=== PATIENT | male | born 1990 | race Caucasian/White ===

== ENCOUNTER 2016-06-11 08:03 | Emergency (ER) | payer BC, OTHER ==
[~2016-06-11] VITALS: Ht 175.3 cm; Wt 119.2 kg
[~2016-06-11 08:03] MED LIST: ALBUAER2 INH; ATV1 PO; PARO1TAB27 PO; PRED20TA PO; PXL20 PO
[2016-06-11 08:06] VITALS: BP 153/91; PULSE 84; TEMP 36.5; O2SAT 96; Ht 175.3 cm; Wt 119.2 kg
[2016-06-11] MEDS ORDERED: PRED50TA PO (08:25)
[2016-06-11] MEDS ORDERED: CYCL10TA6 PO (08:25)
--- NOTE | 2016-06-11 15:15 | EMERGENCY ROOM VISIT NOTE ---
ED Visit Note First contact with patient: 08:11 CHIEF COMPLAINT: Shoulder pain HISTORY OF PRESENT ILLNESS: This 25 year old male patient presents to the emergency department complaining of pain in the right shoulder to the past 2-3 days. The patient states that he was bailing hay when he developed his pain. He went to [facility] last night where x-rays were negative. The patient was started on tramadol. He has taken one dose of the medication with only minimal movement of symptoms. He states there is intermittent numbness into his third, fourth, and fifth digits. There is some limitation of motion of the arm because of the pain. The pain is moderate, constant and increases with motion of the hand and arm. The patient states the pain is dull and 7/10. No neck and no back pain. No chest pain or shortness of breath. No abdominal pain or nausea/vomiting. No cough. REVIEW OF SYSTEMS: A 6 system review of systems was performed with positives and pertinent negatives in the HPI. ALLERGIES: No known allergies MEDICATIONS: No chronic medications PMH: Otherwise healthy SOCIAL HISTORY: Lives in [facility] PHYSICAL EXAM: Vital Signs: Reviewed nurse's notes, vital signs stable. GENERAL : White male, in no acute distress, but appears to be in pain, well-developed, well-nourished. MUSCULOSKELETAL: There is no deformity in the contour of the right shoulder and there are no mikaela deformities noted. There is no sulcus sign. There is tenderness over the distal clavicld. The patient's range of motion is limited to raising the hand above the head. Supraspinatus strength 3/ 5. There is no other clavicle tenderness. No tenderness of the humerus, elbow , wrist, or hand. 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 Radial pulse 2+. NECK: No tenderness to palpation over the cervical spine. HEART: Regular rate and rhythm without murmurs gallops or rubs. LUNGS: Clear to auscultation bilaterally without wheezes, rales or rhonchi. No accessory muscle use. No retractions. NEURO: The patient is alert and oriented to person, place, and time. Normal sensation to light and sharp touch. Capillary refill less than 2 seconds. EMERGENCY DEPARTMENT COURSE: Physical exam and history were performed. Nursing notes and EMR were reviewed. The patient evidently has shoulder pain for the past several days that began while performing physical activity. On examination the patient does not appear toxic and does have reproducible tenderness. I discussed options of care with the patient as evidently he had x- rays performed less than 24 hours ago at another facility. The patient will be started on prednisone and Flexeril. He has an arm sling that he was asked to continue using. He may continue his tramadol. His symptoms appear musculoskeletal in nature. The patient was given information to follow with orthopedics, but again he may wish to look into this back: [place] where he lives. The patient was otherwise invited back to the ER with any new, worsening , or concerning symptoms. Current/Historical Medications Scheduled Cyclobenzaprine Hcl (Flexeril), 10 MG PO TID Paroxetine (Paxil), 30 MG PO DAILY Prednisone (Prednisone), 50 MG PO DAILY Allergies Coded Allergies: No Known Allergies (Unverified , NONE, 06/11/16) Vital Signs Date Time Temp Pulse Resp B/P Pulse Ox O2 Delivery O2 Flow Rate FiO2 06/11/16 08:06 36.5 84 18 153/91 96 Room Air Departure Information Impression Primary Impression: Right shoulder pain Dispostion Home / Self-Care Condition GOOD Prescriptions Cyclobenzaprine Hcl (FLEXERIL) 10 Mg Tab 10 MG PO TID for 7 Days, #21 TAB Prov: Ajit Queen PA-C 06/11/16 Prednisone (Prednisone) 50 Mg Tab 50 MG PO DAILY for 5 Days, #5 TAB Prov: Ajit Queen PA-C 06/11/16 Referrals Avni Duncan D.O. (PCP) Forms HOME CARE DOCUMENTATION FORM, IMPORTANT VISIT INFORMATION Patient Instructions My [facility] Additional Instructions You were seen and evaluated today on an emergency basis only. This is not a substitute for, or an effort to provide, complete comprehensive medical care. It is not possible to recognize and treat all injuries or illnesses in a single emergency department visit. For this reason it is recommended that you followup with your primary care physician on Thursday as scheduled for ongoing care and evaluation. For baseline pain relief you may alternate ibuprofen and acetaminophen every 4 hours for pain control. Take 600 mg ibuprofen (Advil) and then 4 hours later take 1000 mg acetaminophen (Tylenol). Do not take more than 3000 mg acetaminophen in a single day. Continue tramadol as previously prescribed. Take prednisone daily for the next 5 days. Take this medication in the morning with food. Flexeril 1 tablet up to 3 times a day as needed for muscle spasms. No driving, working, or alcohol use with Flexeril. You are welcome to return to the emergency department anytime with new, worsening, or concerning symptoms.
== END 2016-06-11 08:31 | disposition home or self-care (01) ==
LOC: C.EDB 08:05
DX: M25.511 Pain in right shoulder (principal); Z79.899 Other long term (current) drug therapy

== ENCOUNTER 2016-06-24 08:55 | Emergency (ER) | payer OTHER ==
[~2016-06-24] VITALS: Ht 177.8 cm; Wt 120.5 kg
[~2016-06-24 08:55] MED LIST changes: -ALBUAER2 INH; -ATV1 PO; -PRED20TA PO; -PXL20 PO
[2016-06-24 09:05] VITALS: TEMP 36.5; Ht 177.8 cm; Wt 120.5 kg
[2016-06-24] MEDS ORDERED: OPTIRAY 320 IV PRN (10:00)
[2016-06-24 10:19] LABS: BASO % 0.2 %; BASO ABS # 0.01 K/uL (0-0.2); COMPLETE YES; EOS % 0.9 %; HEMATOCRIT 40.4 % (42-52); IG% 0.2 %; LYMPH % 22.7 %; MEAN CELL VOLUME 85.8 fL (80-100); MEAN CORPUSCULAR HEMOGLOBIN 29.7 pg (25-34); MEAN CORPUSCULAR HGB CONC 34.7 g/dl (32-36); MEAN PLATELET VOLUME 9.3 fL (7.4-10.4); PLATELET COUNT 354 K/uL (130-400); RED BLOOD COUNT 4.71 M/uL (4.7-6.1); WHITE BLOOD COUNT 6.61 K/uL (4.8-10.8)
--- NOTE | 2016-06-24 10:33 | DIAGNOSTIC IMAGING REPORT ---
LUMBAR SPINE 5 VIEWS CLINICAL HISTORY: Fall. Low back pain. FINDINGS: 5 views of the lumbar spine are obtained. No prior studies are available for comparison at the time of dictation. The skeletal structures are well mineralized. There is no radiographic evidence of fracture or malalignment. Vertebral body height and alignment are maintained. The transverse and spinous processes are intact. There is no evidence of spondylolysis. The intervertebral disc spaces are well-maintained. The visualized bony pelvis appears intact. There is a nonobstructed abdominal bowel gas pattern. IMPRESSION: Unremarkable radiographic evaluation of the lumbosacral spine. Electronically signed by: Sonido Fregoso M.D. 06/24/2016 10:32 AM Dictated Date/Time: 06/24/2016 10:31 AM
--- NOTE | 2016-06-24 10:34 | DIAGNOSTIC IMAGING REPORT ---
RIGHT FOOT MIN 3 VIEWS ROUTINE CLINICAL HISTORY: Right foot pain status post trauma COMPARISON: None DISCUSSION: There are old healed metatarsal fractures. There is deformity of the second metatarsal head, consistent with old posttraumatic change or prior avascular necrosis. Secondary arthritic changes are present most pronounced the level of the metatarsal phalangeal joints and tarsal metatarsal joints. No acute fractures are visualized. IMPRESSION: Old posttraumatic and degenerative change. No acute fractures are visualized. Electronically signed by: Sergei Harris M.D. 06/24/2016 10:33 AM Dictated Date/Time: 06/24/2016 10:31 AM
--- NOTE | 2016-06-24 10:34 | DIAGNOSTIC IMAGING REPORT ---
RIGHT ANKLE 3 VIEWS CLINICAL HISTORY: Fall with right ankle pain. FINDINGS: 3 views of the right ankle are obtained. No prior studies are available for comparison at the time of dictation. The skeletal structures are well mineralized. There is no radiographic evidence of fracture. The ankle mortise is intact. There is no joint effusion. Mild soft tissue swelling is present around the ankle. Irregularity is partially imaged involving the tarsal bones. IMPRESSION: Mild soft tissue swelling with no radiographic evidence of right ankle fracture. Electronically signed by: Sonido Fregoso M.D. 06/24/2016 10:33 AM Dictated Date/Time: 06/24/2016 10:32 AM
[2016-06-24 10:36] LABS: BUN/CREATININE RATIO 12.1 (10-20); CALCIUM 8.6 mg/dl (8.5-10.1); CREATININE 0.81 mg/dl (0.60-1.40); POTASSIUM 3.7 mmol/L (3.5-5.1)
--- NOTE | 2016-06-24 11:31 | DIAGNOSTIC IMAGING REPORT ---
ABDOMEN AND PELVIS CT WITH IV CONTRAST CT DOSE: 1022.88 mGy.cm HISTORY: Trauma eval for solid organ injury TECHNIQUE: Multiaxial CT images of the abdomen and pelvis were performed following the use of intravenous contrast. COMPARISON STUDY: None. FINDINGS: The lung bases are clear. The liver, spleen, gallbladder, pancreas, kidneys, and adrenal glands are within normal limits. No bowel wall thickening or obstruction. The pelvic organs are unremarkable. No suspicious lytic or blastic osseous lesions. Subtle contusion subcutaneous fat overlying the anterior lower abdominal wall. IMPRESSION: No significant abnormality identified within the abdomen or pelvis. Slight subcutaneous fat contusion anterior aspect lower abdominal wall. Electronically signed by: Sudhir Centeno M.D. 06/24/2016 11:30 AM Dictated Date/Time: 06/24/2016 11:26 AM
[2016-06-24 12:05] VITALS: BP 131/72; PULSE 65; O2SAT 98
--- NOTE | 2016-06-24 16:21 | EMERGENCY ROOM VISIT NOTE ---
History Report prepared by Charbel: Nancy Avila Under the Supervision of: Dr. Jorge Alberto Gallardo M.D. First contact with patient: 09:40 Chief Complaint: FALL Stated Complaint: R BACK FOOT, SHOULDER PAIN History of Present Illness The patient is a 25 year old male who presents to the Emergency Room with complaints of persistent low back pain that began last evening. He currently rates his discomfort as a 10/10 in severity. The patient states that last evening as he was traveling from [place] to [place] he came across tress that were down in the middle of the road. He states that he got out of his car to try and help move the trees, but states that when he stepped on a wet branch, he slipped and fell, injuring his lower back. The patient states that the tree feel on top of him, and notes that he had some abdominal pain last evening that has resolved. He additionally notes that he twisted his right ankle and associates right ankle pain. The patient states that ambulating worsens his pain in his back and right ankle. He notes shooting pain from his back into his right leg. The patient denies any head injury or chest pain. He notes a history of a right foot reconstruction. Source of History: patient Onset: last evening Position: back (lower) Symptom Intensity: 10/10 Quality: other (shooting) Timing: other (persistent) Modifying Factors (Worsening): movement (ambulation) Associated Symptoms: No chest pain Note: Associated Symptoms: right ankle pain, pain radiating into his right leg Review of Systems See HPI for pertinent positives & negatives. A total of 10 systems reviewed and were otherwise negative. Past Medical & Surgical Medical Problems: (1) Asthma Surgical Problems: (1) Status post right foot surgery Family History Cancer Diabetes mellitus Hypertension Kidney disease Kidney stones Social History Smoking Status: Never Smoker Smokeless Tobacco Use: No Alcohol Use: occasionally Occupation Status: employed Current/Historical Medications No Active Prescriptions or Reported Meds Allergies Coded Allergies: No Known Allergies (Unverified , NONE, 06/24/16) Physical Exam Vital Signs Date Time Temp Pulse Resp B/P Pulse Ox O2 Delivery O2 Flow Rate FiO2 06/24/16 12:05 65 16 131/72 98 06/24/16 12:03 65 16 131/72 98 Room Air 06/24/16 11:37 67 15 141/66 99 Room Air 06/24/16 10:03 76 16 138/71 97 Room Air 06/24/16 09:05 36.5 74 16 139/92 96 Room Air Physical Exam Constitutional: Vital signs reviewed. Eyes: Pupils are equal round reactive to light. Conjunctiva are noninjected. ENT: Pharynx is clear without erythema or exudate. Mucous membranes are moist. Neck supple without meningeal signs. No midline tenderness to cervical spine. Respiratory: Clear to auscultation bilaterally. Breath sounds are equal bilaterally. Cardiovascular: Regular rate and rhythm. No rubs or gallops. GI: Right upper quadrant tenderness without guarding, no signs of trauma to the abdomen Soft, nondistended. Bowel sounds are present. Musculoskeletal: No significant rib tenderness no midline tenderness to thoracic spine, mild midline tenderness to lumbar spine without step off or deformity. No tenderness to right knee or tib/fib, mild right ankle tenderness diffusely, tenderness over the right mid foot without deformity. Integumentary: No cyanosis. Neurological: The patient is awake and alert. No focal deficits. Psychiatric: Normal affect. Medical Decision & Procedures ER Provider Diagnostic Interpretation: Radiology results as stated below per my review and the radiologist's interpretation: ABDOMEN AND PELVIS CT WITH IV CONTRAST CT DOSE: 1022.88 mGy.cm HISTORY: Trauma eval for solid organ injury TECHNIQUE: Multiaxial CT images of the abdomen and pelvis were performed following the use of intravenous contrast. COMPARISON STUDY: None. FINDINGS: The lung bases are clear. The liver, spleen, gallbladder, pancreas, kidneys, and adrenal glands are within normal limits. No bowel wall thickening or obstruction. The pelvic organs are unremarkable. No suspicious lytic or blastic osseous lesions. Subtle contusion subcutaneous fat overlying the anterior lower abdominal wall. IMPRESSION: No significant abnormality identified within the abdomen or pelvis. Slight subcutaneous fat contusion anterior aspect lower abdominal wall. Electronically signed by: Sudhir Centeno M.D. 06/24/2016 11:30 AM Dictated Date/Time: 06/24/2016 11:26 AM RIGHT ANKLE 3 VIEWS CLINICAL HISTORY: Fall with right ankle pain. FINDINGS: 3 views of the right ankle are obtained. No prior studies are available for comparison at the time of dictation. The skeletal structures are well mineralized. There is no radiographic evidence of fracture. The ankle mortise is intact. There is no joint effusion. Mild soft tissue swelling is present around the ankle. Irregularity is partially imaged involving the tarsal bones. IMPRESSION: Mild soft tissue swelling with no radiographic evidence of right ankle fracture. Electronically signed by: Sonido Fregoso M.D. 06/24/2016 10:33 AM Dictated Date/Time: 06/24/2016 10:32 AM RIGHT FOOT MIN 3 VIEWS ROUTINE CLINICAL HISTORY: Right foot pain status post trauma COMPARISON: None DISCUSSION: There are old healed metatarsal fractures. There is deformity of the second metatarsal head, consistent with old posttraumatic change or prior avascular necrosis. Secondary arthritic changes are present most pronounced the level of the metatarsal phalangeal joints and tarsal metatarsal joints. No acute fractures are visualized. IMPRESSION: Old posttraumatic and degenerative change. No acute fractures are visualized. Electronically signed by: Sergei Harris M.D. 06/24/2016 10:33 AM Dictated Date/Time: 06/24/2016 10:31 AM LUMBAR SPINE 5 VIEWS CLINICAL HISTORY: Fall. Low back pain. FINDINGS: 5 views of the lumbar spine are obtained. No prior studies are available for comparison at the time of dictation. The skeletal structures are well mineralized. There is no radiographic evidence of fracture or malalignment. Vertebral body height and alignment are maintained. The transverse and spinous processes are intact. There is no evidence of spondylolysis. The intervertebral disc spaces are well-maintained. The visualized bony pelvis appears intact. There is a nonobstructed abdominal bowel gas pattern. IMPRESSION: Unremarkable radiographic evaluation of the lumbosacral spine. Electronically signed by: Sonido Fregoso M.D. 06/24/2016 10:32 AM Dictated Date/Time: 06/24/2016 10:31 AM The status of this report is Signed. Draft = Not yet reviewed or approved by Radiologist. Signed = Reviewed and approved by Radiologist. Laboratory Results 06/24/16 10:00 Red Blood Count 4.71, Mean Corpuscular Volume 85.8, Mean Corpuscular Hemoglobin 29.7, Mean Corpuscular Hemoglobin Concent 34.7, Mean Platelet Volume 9.3, Neutrophils (%) (Auto) 66.0, Lymphocytes (%) (Auto) 22.7, Monocytes (%) (Auto) 10.0, Eosinophils (%) (Auto) 0.9, Basophils (%) (Auto) 0.2, Neutrophils # (Auto ) 4.37, Lymphocytes # (Auto) 1.50, Monocytes # (Auto) 0.66, Eosinophils # (Auto ) 0.06, Basophils # (Auto) 0.01 06/24/16 10:00 Test 06/24/16 10:00 White Blood Count 6.61 K/uL (4.8-10.8) Red Blood Count 4.71 M/uL (4.7-6.1) Hemoglobin 14.0 g/dL (14.0-18.0) Hematocrit 40.4 % (42-52) Mean Corpuscular Volume 85.8 fL (80-100) Mean Corpuscular Hemoglobin 29.7 pg (25-34) Mean Corpuscular Hemoglobin Concent 34.7 g/dl (32-36) Platelet Count 354 K/uL (130-400) Mean Platelet Volume 9.3 fL (7.4-10.4) Neutrophils (%) (Auto) 66.0 % Lymphocytes (%) (Auto) 22.7 % Monocytes (%) (Auto) 10.0 % Eosinophils (%) (Auto) 0.9 % Basophils (%) (Auto) 0.2 % Neutrophils # (Auto) 4.37 K/uL (1.4-6.5) Lymphocytes # (Auto) 1.50 K/uL (1.2-3.4) Monocytes # (Auto) 0.66 K/uL (0.11-0.59) Eosinophils # (Auto) 0.06 K/uL (0-0.5) Basophils # (Auto) 0.01 K/uL (0-0.2) RDW Standard Deviation 42.9 fL (36.4-46.3) RDW Coefficient of Variation 13.8 % (11.5-14.5) Immature Granulocyte % (Auto) 0.2 % Immature Granulocyte # (Auto) 0.01 K/uL (0.00-0.02) Anion Gap 6.0 mmol/L (3-11) Est Creatinine Clear Calc Drug Dose 184.6 ml/min Estimated GFR () 145.2 Estimated GFR (Non- 125.3 BUN/Creatinine Ratio 12.1 (10-20) Calcium Level 8.6 mg/dl (8.5-10.1) Total Bilirubin 2.1 mg/dl (0.2-1) Direct Bilirubin 0.3 mg/dl (0-0.2) Aspartate Amino Transf (AST/SGOT) 13 U/L (15-37) Alanine Aminotransferase (ALT/SGPT) 57 U/L (12-78) Alkaline Phosphatase 54 U/L (45-117) Total Protein 7.0 gm/dl (6.4-8.2) Albumin 4.3 gm/dl (3.4-5.0) Lipase 116 U/L (73-393) Laboratory results as reviewed by me. ED Course 0944: The patient was evaluated in room A3. A complete history and physical exam was performed. 1147: I reevaluated the patient and he is feeling well. I discussed all the test results with him and I discussed the treatment plan with him. He verbalized complete understanding and agreement. He is going to follow up with his orthopedic and PCP. He is ready to go home. Medical Decision This is a 25-year-old male who presents with injuries to his abdomen, back and right ankle and foot. Differential diagnosis includes solid organ injury, contusion, strain, lumbar disc disease, ankle fracture or dislocation, foot fracture. I did perform a limited focused review of portions of the patient's old chart on the electronic medical record. The patient was Seen here June 11 for right shoulder pain and he was discharged with Flexeril and prednisone and advised to follow up with orthopedics. I did evaluate the patient as noted above. The patient has abdominal tenderness and stated that they tree fell on his abdomen as he was trying to move it. He also hurt his back and foot and ankle in the process. He does have some tenderness in the upper abdomen. IV access was established. The patient drove here and so cannot receive any strong pain medications. I did order and personally review the patient's x-rays as described above. There is no evidence of acute fracture or dislocation. I did order and review the patient's blood work as noted in the electronic medical record. He is not anemic. I did order a CT of the abdomen and pelvis. I did review the images myself as well as the radiology report as described above. There is no evidence of solid organ injury. He does appear to have an abdominal wall contusion. I did discuss the test results with the patient. He was given a splint for his right ankle and crutches. He was advised follow up with his orthopedic doctor as well as his regular doctor. He was given return instructions as outlined below and discharged in good condition. [place] Drug Monitoring Program Search Results: patient reviewed within database, no issues identified Impression Primary Impression: Abdominal wall contusion Additional Impressions: Low back pain Injury of right ankle and foot Scribe Attestation The scribe's documentation has been prepared under my direct and personally reviewed by me in its entirety. I confirm that the note above accurately reflects all work, treatment, procedures, and medical decision making performed by me. Departure Information Dispostion Home / Self-Care Prescriptions No Active Prescriptions or Reported Meds Referrals Avni Duncan D.O. (PCP) Forms HOME CARE DOCUMENTATION FORM, IMPORTANT VISIT INFORMATION Patient Instructions My [facility] Additional Instructions You have been examined and treated today on an emergency basis only. This is not a substitute for, or an effort to provide, complete comprehensive medical care. It is impossible to recognize and treat all injuries or illnesses in a single emergency department visit. It is therefore important that you follow up closely with your physician and orthopedic physician. Call as soon as possible for an appointment. Return for worsening symptoms or if you develop fever, vomiting, blood in your stool or urine, difficulty breathing, chest pain or any other concerning symptoms. Problem Qualifiers Additional Impressions: Low back pain Chronicity: acute Back pain laterality: bilateral Sciatica presence: with sciatica Sciatica laterality: bilateral sciatica Qualified Codes: M54.42 - Lumbago with sciatica, left side; M54.41 - Lumbago with sciatica, right side Injury of right ankle and foot Encounter type: initial encounter Qualified Codes: S99.911A - Unspecified injury of right ankle, initial encounter; S99.921A - Unspecified injury of right foot, initial encounter
== END 2016-06-24 12:05 | disposition home or self-care (01) ==
LOC: C.EDB 08:57 → C.EDA 12:05
DX: S30.1XXA Contusion of abdominal wall, initial encounter (principal); M54.41 Lumbago with sciatica, right side; M54.42 Lumbago with sciatica, left side; S99.911A Unspecified injury of right ankle, initial encounter; J45.909 Unspecified asthma, uncomplicated; Z82.49 Family history of ischemic heart disease and other diseases of the circulatory system; Z83.3 Family history of diabetes mellitus; Z84.1 Family history of disorders of kidney and ureter; W01.0XXA Fall on same level from slipping, tripping and stumbling without subsequent striking against object, initial encounter; X50.0XXA Overexertion from strenuous movement or load, initial encounter; Y93.89 Activity, other specified

== ENCOUNTER 2016-09-09 07:16 | Emergency (ER) | payer OTHER ==
[~2016-09-09] VITALS: Ht 175.3 cm; Wt 112.9 kg
[2016-09-09 07:20] VITALS: Ht 175.3 cm; Wt 112.9 kg
[2016-09-09] MEDS ORDERED: SODIUM CHLORIDE 0.9% 1000ML 1,000 ML IV STA (07:42)
[2016-09-09] MEDS ORDERED: MoRPHine SULFATE 4 MG/ML 1 ML CARP\\VIAL IV STA (07:42)
[2016-09-09] MEDS ORDERED: ONDANSETRON INJ 2 MG/ML 2 ML VIAL IV STA (07:42)
[2016-09-09 08:00] LABS: BASO % 0.2 %; BASO ABS # 0.01 K/uL (0-0.2); COMPLETE YES; EOS % 2.1 %; HEMATOCRIT 44.2 % (42-52); IG% 0.2 %; LYMPH % 25.2 %; LYMPH ABS # 1.65 K/uL (1.2-3.4); MEAN CELL VOLUME 84.5 fL (80-100); MEAN CORPUSCULAR HEMOGLOBIN 29.4 pg (25-34); MEAN CORPUSCULAR HGB CONC 34.8 g/dl (32-36); MEAN PLATELET VOLUME 9.2 fL (7.4-10.4); MONO % 10.7 %; NEUT % 61.6 %; PLATELET COUNT 393 K/uL (130-400); RED BLOOD COUNT 5.23 M/uL (4.7-6.1); WHITE BLOOD COUNT 6.55 K/uL (4.8-10.8)
[2016-09-09 08:17] LABS: BUN/CREATININE RATIO 9.2 (10-20); CALCIUM 9.2 mg/dl (8.5-10.1); CREATININE 0.95 mg/dl (0.60-1.40); POTASSIUM 3.7 mmol/L (3.5-5.1)
--- NOTE | 2016-09-09 08:36 | DIAGNOSTIC IMAGING REPORT ---
ABDOMEN 2VIEW W/PA CHEST RTN CLINICAL HISTORY: ABDOMINAL PAIN/GI pain COMPARISON STUDY: No previous studies for comparison. FINDINGS: The soft tissues, psoas shadows, renal outlines and intestinal gas pattern appear normal. There is no evidence for bowel obstruction. There is no evidence for free intraperitoneal air. No abnormal abdominal calcifications are seen. A frontal view of the chest was performed and is unremarkable. IMPRESSION: Normal study. The above report was generated using voice recognition software. It may contain grammatical, syntax or spelling errors. Electronically signed by: Sudhir Centeno M.D. 09/09/2016 8:34 AM Dictated Date/Time: 09/09/2016 8:34 AM
[2016-09-09 08:59] VITALS: TEMP 36.5
[2016-09-09] MEDS ORDERED: ONDA4TAB46 PO (10:18)
[2016-09-09 10:23] VITALS: BP 126/73; PULSE 81; O2SAT 97
--- NOTE | 2016-09-09 15:57 | EMERGENCY ROOM VISIT NOTE ---
ED Visit Note First contact with patient: 07:24 Chief Complaint: Nausea, vomiting, diarrhea and abdominal pain. History of Present Illness: Mr. Ring is a 26 year-old white male who ambulates into the ED complaining of nausea, vomiting and diarrhea and diffuse abdominal pain. Historically patient reports no significant gastrointestinal disorders or abdominal surgeries. Patient reports a abrupt onset of nausea with vomiting and diarrhea for the last 4 days. He reports in the last 24 hours he's had 20 episodes of light brown watery stools and 6 episodes of vomiting. For the last 3 days he reports he has been having diffuse abdominal pain with prominence on the left side of the abdomen. He describes this as a sharp and cramping sensation. He rates his discomfort 9/10. The pain is nonradiating. His pain worsens with episodes of vomiting and diarrhea and a slightly better after these episodes. He has not taken any medications for his symptoms prior to arrival at the hospital. He reports while driving to work today he had a specific violent episode of vomiting and then had a syncopal episode while he was sitting in the car. Associated with his symptoms he reports he has had multiple episodes of chills but no daniel sweating and bilateral flank pain. Patient denies skin eruptions, skin color changes, upper respiratory tract symptoms, shortness of breath, chest pain, rectal bleeding, black/tarry stools, urinary symptoms, hematuria, back pain. Review of Systems: As noted above in history of present illness. All body systems were reviewed and found to be negative as noted above. Past Medical History: Asthma. Current Medications: Patient denies. Allergies to Medications: Patient denies. Social History: Patient is currently employed; he feels safe in his home environment; he admits to tobacco and alcohol use. Physical Examination: Vital Signs: Date Time Temp Pulse Resp B/P (MAP) Pulse Ox O2 Delivery O2 Flow Rate FiO2 09/09/16 10:23 81 16 126/73 97 09/09/16 09:07 51 110/62 99 55 113/60 57 103/73 09/09/16 08:59 36.5 65 22 111/71 98 Room Air 09/09/16 07:20 36.5 74 18 110/71 97 Room Air GENERAL: 26-year-old female in mild distress due to pain, nontoxic-appearing, afebrile and hemodynamically stable. NEUROLOGICAL: Awake, alert and oriented to person, place and time. Answering questions appropriately and following commands. Normal gait. Good hand eye coordination. SKIN: Warm, dry and pink. No soft tissue eruptions or trauma noted. HEENT: Atraumatic and normocephalic. PERRLA. Sclera white and conjunctiva pink. Oral cavity moist and pink. Pharynx is nonerythematous or edematous. Speech normal. No lymphadenopathy. Trachea midline. No jugular venous distention. BACK: No tenderness over the bony spine. No CVA tenderness. THORAX: Lungs sounds are clear to auscultation and equal bilaterally with symmetrical chest wall. No wheezing, rales or rhonchi. No crepitus, tenderness , subcutaneous air or deformities noted. HEART: Regular rate and rhythm. No gallops, rubs or murmurs are appreciated. ABDOMEN: Obese, soft and nontender. Positive bowel sounds in all quadrants. No guarding, rigidity or organomegaly. EXTREMITIES: Moves all extremities well on command and with purpose. All distal neurovascular statuses are intact and equal bilaterally. ED Course: Patient is assessed as noted above. Patient's medication list was reviewed. Laboratory Testing: Test 09/09/16 07:46 Range/Units White Blood Count 6.55 4.8-10.8 K/uL Red Blood Count 5.23 4.7-6.1 M/uL Hemoglobin 15.4 14.0-18.0 g/dL Hematocrit 44.2 42-52 % Mean Corpuscular Volume 84.5 80-100 fL Mean Corpuscular Hemoglobin 29.4 25-34 pg Mean Corpuscular Hemoglobin Concent 34.8 32-36 g/dl Platelet Count 393 130-400 K/uL Mean Platelet Volume 9.2 7.4-10.4 fL Neutrophils (%) (Auto) 61.6 % Lymphocytes (%) (Auto) 25.2 % Monocytes (%) (Auto) 10.7 % Eosinophils (%) (Auto) 2.1 % Basophils (%) (Auto) 0.2 % Neutrophils # (Auto) 4.04 1.4-6.5 K/uL Lymphocytes # (Auto) 1.65 1.2-3.4 K/uL Monocytes # (Auto) 0.70 0.11-0.59 K/uL Eosinophils # (Auto) 0.14 0-0.5 K/uL Basophils # (Auto) 0.01 0-0.2 K/uL RDW Standard Deviation 43.8 36.4-46.3 fL RDW Coefficient of Variation 14.1 11.5-14.5 % Immature Granulocyte % (Auto) 0.2 % Immature Granulocyte # (Auto) 0.01 0.00-0.02 K/uL Sodium Level 141 136-145 mmol/L Potassium Level 3.7 3.5-5.1 mmol/L Chloride Level 108 98-107 mmol/L Carbon Dioxide Level 24 21-32 mmol/L Anion Gap 9.0 3-11 mmol/L Blood Urea Nitrogen 9 7-18 mg/dl Creatinine 0.95 0.60-1.40 mg/dl Est Creatinine Clear Calc Drug Dose 148.6 ml/min Estimated GFR () 129.3 Estimated GFR (Non- 111.6 BUN/Creatinine Ratio 9.2 10-20 Random Glucose 118 70-99 mg/dl Calcium Level 9.2 8.5-10.1 mg/dl Total Bilirubin 1.1 0.2-1 mg/dl Direct Bilirubin 0.2 0-0.2 mg/dl Aspartate Amino Transf (AST/SGOT) 10 15-37 U/L Alanine Aminotransferase (ALT/SGPT) 36 12-78 U/L Alkaline Phosphatase 60 45-117 U/L Total Protein 7.0 6.4-8.2 gm/dl Albumin 4.1 3.4-5.0 gm/dl Lipase 116 73-393 U/L Microbiology Results 09/09/16 C.difficile Toxin B Gene (PCR) - No C. difficile toxin B gene detected 09/09/16 Rotavirus Antigen - Negative for Rotavirus Antigen 09/09/16 WBC Smear - Pending 09/09/16 Shiga Toxin Test - Pending 09/09/16 Stool Culture - Pending Acute Abdominal X-Ray Series: Were read by myself and the radiologist showing a normal-appearing chest with no signs of infiltrates, effusions or pneumothorax. Abdominal component shows no free air, nonspecific bowel gas pattern and no signs of obstruction. Patient was hydrated with normal saline and received 4 mg of Zofran IV and 4 mg of morphine IV for pain. Patient was reassessed multiple times during his stay in the emergency department. Patient's case was reviewed with Dr. Leon; we agreed on diagnostic approach, treatment, disposition and plan. Patient was trialed on crackers and juice; he was able to tolerate this with no return of pain or nausea/vomiting. Patient was educated about today's findings and instructed on his treatment plan ; he verbalizes understanding and agreement with this plan. Clinical Impression: Nausea, vomiting and diarrhea. Lower abdominal pain. Decision-Making: Initially my differential diagnosis I considered gastroenteritis, food poisoning, diverticulitis, perforated viscus, gastritis, bowel obstruction and other causes. Disposition: Patient discharged home in stable condition; prior to departure he was reassessed and subjectively reported he was feeling better. He had no additional episodes of diarrhea in the emergency department. He had resolution of nausea and had no additional episodes of vomiting. He rated his discomfort 1 /10. Plan: Patient was prescribed Zofran 4 mg every 6 hours as needed for nausea/vomiting. Patient was encouraged to use OTC Imodium for diarrhea and follow packaging instructions for dosing. Patient was encouraged to use ibuprofen or acetaminophen as needed for pain. Patient was encouraged to stay well-hydrated with increased clear fluids. Patient was encouraged use a bland diet for the next 48 hours. Patient was encouraged to keep his upcoming follow-up appointment with his primary care provider this for recheck and review of stool cultures. Patient was encouraged return ED for worsening/uncontrolled pain, worsening nausea/vomiting, worsening diarrhea, bloody stools, bloody vomitus, fevers or any new/concerning symptoms.
== END 2016-09-09 10:26 | disposition home or self-care (01) ==
LOC: C.EDB 07:17
DX: R11.2 Nausea with vomiting, unspecified (principal); R19.7 Diarrhea, unspecified; R10.30 Lower abdominal pain, unspecified; R55 Syncope and collapse; J45.909 Unspecified asthma, uncomplicated